=== PATIENT | male | born 1970 | race Two or more races ===

== ENCOUNTER 2023-05-27 11:00 | Observation (INO) | payer BC, OTHER ==
[~2023-05-27] VITALS: Ht 172.7 cm; Wt 78.3 kg
[2023-05-27 11:52] LABS: Urine Bacteria NONE SEEN /hpf (None Seen); Urine Blood Negative /uL (Negative); Urine Clarity Clear (Clear); Urine Color Yellow (Yellow); Urine Protein, UAD Negative (Negative); Urine Specific Gravity 1.018 (1.001-1.035); Urine Urobilinogen Normal (Negative); Urine WBC <1 /hpf (0 - 3)
[2023-05-27 11:55] LABS: INR 1.02 (0.9-1.15); Partial Thromboplastin Time 27.9 SEC (24.5-34.5); Prothrombin Time 10.7 sec (9.3-11.8)
[2023-05-27 11:59] LABS: Basophils # (auto) 0.1 10 ^3/uL (0-0.2); Basophils % (auto) 0.7 % (0.0-2.0); Eosinophils # (auto) 0.4 10 ^3/uL (0-0.8); Eosinophils % (auto) 4.6 % (0.0-7.0); Hemoglobin 14.6 g/dL (13.5-17.5); Lymphocytes # (auto) 2.2 10 ^3/uL (0.4-5.4); Lymphocytes % (auto) 26.1 % (10.0-50.0); Mean Corpuscular Hemoglobin 31.6 pg (28.0-32.0); Mean Corpuscular Hgb Conc. 34.8 g/dL (32.0-36.0); Mean Corpuscular Volume 90.9 fL (80.0-100.0); Monocytes # (auto) 0.7 10 ^3/uL (0-1.3); Monocytes % (auto) 8.1 % (0.0-12.0); Neutrophils # (auto) 5.2 10 ^3/uL (1.6-8.6); Neutrophils % (auto) 60.5 % (37.0-80.0); Nucleated Red Blood Cells % 0.1 %; Red Blood Cells 4.62 10^6/uL (4.5-5.90); White Blood Cell 8.5 10^3/uL (4.4-10.8)
[2023-05-27 12:13] LABS: Alanine Aminotransferase 38 U/L (7-40); Albumin 4.5 g/dL (3.2-4.8); Alkaline Phosphatase 89 U/L (46-116); Anion Gap 9.5 (5-15); Aspartate Aminotransferase 21 U/L (13-40); BUN/Creatinine Ratio 14.4 (10.0-20.0); Bilirubin, Total 0.9 mg/dL (0.2-1.0); Blood Urea Nitrogen 13 mg/dL (9-23); Calcium 9.6 mg/dL (8.5-10.1); Carbon Dioxide 25.5 mmol/L (20-30); Chloride 104 mmol/L (98-107); Glucose 100 mg/dL (74-106); Potassium 3.8 mmol/L (3.5-5.1); Sodium 139 mmol/L (136-145); Total Protein 7.1 g/dL (5.7-8.2)
[2023-05-27] MEDS ORDERED: ASPirin 325 MG TAB PO ONE (12:15)
[2023-05-27] MEDS ORDERED: ACETAMINOPHEN 325 MG TAB PO PRN (16:45)
[2023-05-27] MEDS ORDERED: ONDANSETRON HCL 4 MG/2 ML VIAL IV PRN (16:45)
[2023-05-27] MEDS ORDERED: NITROGLYCERIN 0.4 MG SL TAB SL PRN (16:45)
[2023-05-27] MEDS ORDERED: MORPHINE SULFATE INJ 2 MG/ml SYRG IV PRN ×2 (16:45)
[2023-05-28 02:56] VITALS: PULSE 49; RESP 14; O2SAT 97
[2023-05-28 08:20] VITALS: PULSE 53; RESP 15; O2SAT 97
[2023-05-28] MEDS ORDERED: ATORVASTATIN 20 MG TAB PO SCH ×2 (09:00→22:00)
[2023-05-28] MEDS ORDERED: AMIODARONE HCL 200 MG TAB PO SCH (10:00)
[2023-05-28] MEDS ORDERED: ASPirin-EC 81 mg tab PO SCH (10:00)
[2023-05-28] MEDS ORDERED: METOPROLOL SUCCINATE XL 50 MG TAB PO SCH (10:00)
[2023-05-28] MEDS ORDERED: LISINOPRIL 5 MG TAB PO SCH (10:00)
[2023-05-28] MEDS ORDERED: CLOPIDOGREL BISULFATE 75 MG TAB PO SCH (10:00)
[2023-05-28 12:04] VITALS: PULSE 82; RESP 19; O2SAT 97
[2023-05-28] MEDS ORDERED: CLOP75TA70 PO (12:38)
[2023-05-28] MEDS ORDERED: ATOR-47 PO (12:38)
[2023-05-28] MEDS ORDERED: ASPI81CH59 PO (12:38)
[2023-05-28] MEDS ORDERED: METO25TA93 PO (12:38)
[2023-05-28] MEDS ORDERED: AMIO200T13 PO (12:38)
[2023-05-28 13:00] VITALS: BP 109/71; PULSE 51; RESP 18; TEMP 97.3; O2SAT 97
[2023-05-28 14:28] LABS: Hepatitis B Surface Antigen Negative (Negative)
[2023-05-28 14:50] LABS: Hepatitis C Antibody Negative (Negative)
[2023-05-28 16:56] VITALS: BP 113/68; PULSE 51
[2023-05-28 17:11] VITALS: BP 103/64; PULSE 54; RESP 19; TEMP 97.3; O2SAT 99
== END 2023-05-28 18:00 | disposition still patient (30) ==
LOC: ER 11:00 → TELE 16:47 → TELE-CENTR 05-28 11:20
PROVIDERS: ADMIT Internal Medicine; ATTEND Internal Medicine
DX: R07.89 Other chest pain (principal); I21.4 Non-ST elevation (NSTEMI) myocardial infarction; I25.10 Atherosclerotic heart disease of native coronary artery without angina pectoris; E78.5 Hyperlipidemia, unspecified; I25.2 Old myocardial infarction; I10 Essential (primary) hypertension; Z79.02 Long term (current) use of antithrombotics/antiplatelets; Z79.82 Long term (current) use of aspirin; Z79.899 Other long term (current) drug therapy; Z86.74 Personal history of sudden cardiac arrest; Z95.5 Presence of coronary angioplasty implant and graft
CPT/HCPCS: 36415; 71045; 80053; 81001; 83735; 84484; 85025; 85379; 85610; 85730; 86803; 87340; 93005; 93306; 99291; G0378